=== PATIENT | male | born 1950 | race Caucasian/White ===

== ENCOUNTER 2023-11-04 14:23 | Inpatient (IN) | payer MEDICARE ==
[2023-11-04] MEDS ORDERED: cefTRIAXone\\ROCEPHIN 2 GM in Sodium Chloride 0.9% 100 ML IVPB SCH (17:00)
[2023-11-04] MEDS ORDERED: Lactated Ringer's 1,000 ML IV SCH (17:15)
[2023-11-04] MEDS ORDERED: Furosemide 20 MG TAB PO SCH (17:30)
[2023-11-04 17:54] LABS: Hematocrit 26.3 % (42.0-52.0); Hemoglobin 8.5 g/dL (14.0-18.0); Manual Diff?? YES; Mean Corpuscular HGB CONC 32.3 g/dL (32.0-36.0); Mean Corpuscular Hemoglobin 28.8 pg (27.0-31.0); Mean Corpuscular Volume 89.2 fl (78.0-98.0); Mean Platelet Volume 9.7 fL (7.4-10.4); Platelet Count 117 10x3/uL (130-400); RBC Distribution Width 20.1 % (11.5-14.5); Red Blood Cell (RBC) Count 2.95 mill/uL (4.70-6.10); White Blood Cell (WBC) Count 7.3 10x3/uL (4.8-10.8)
[2023-11-04 18:07] LABS: Delete Auto Diff?? YES
[2023-11-04 18:14] LABS: ALT (SGPT) 8 U/L (8-55); AST (SGOT) 24 U/L (5-34); Albumin 3.1 g/dL (3.4-4.8); Alkaline Phosphatase 116 U/L (40-110); Anion Gap 16 mmol/L (10-20); BUN (Urea Nitrogen) 62 mg/dL (8.4-25.7); Bilirubin, Total 1.3 mg/dL (0.2-1.2); Calc. Creatinine Clearance 0 mL/min (70-130); Calcium 7.9 mg/dL (7.8-10.44); Carbon Dioxide 21 mmol/L (23-31); Chloride 92 mmol/L (98-107); Estimated GFR 25; Globulin 2.7 g/dL (2.4-3.5); Glucose 101 mg/dL (83-110); Potassium 5.7 mmol/L (3.5-5.1); Protein, Total 5.8 g/dL (5.8-8.1); Sodium 123 mmol/L (136-145)
[2023-11-04 18:23] LABS: Band 13 % (5-11); Lymphocytes 3 % (21-51); Monocytes 5 % (0-10); Neutrophil 79 % (42-75); Platelet Adequacy Comment Appears Decreased; Polychromasia SLIGHT = 2-3 cells (100X) (0-2/hpf)
[2023-11-04 18:45] VITALS: BMI 47.7
[2023-11-04] MEDS: Albumin 25% 25 GM (100 mL) BOT IVPB SCH ×2 (19:24→23:23)
[2023-11-04] MEDS ORDERED: Vancomycin 2 GM in Sodium Chloride 0.9% 250 ML 300 ML IVPB SCH (20:00)
[2023-11-04] MEDS: Famotidine 20 MG TAB PO SCH (20:40)
[2023-11-04] MEDS: Apixaban 2.5 MG TAB PO SCH (20:40)
[2023-11-04] MEDS: Sodium Chloride 0.9% 1,000 ML IV SCH (20:40)
[2023-11-05] MEDS ORDERED: Ondansetron ODT 4 MG TAB PO PRN (00:38)
[2023-11-05] MEDS ORDERED: Lorazepam 2 MG/ML VIAL IM PRN (00:38)
[2023-11-05] MEDS ORDERED: Lorazepam 1 MG TAB PO PRN (00:38)
[2023-11-05] MEDS ORDERED: Lorazepam 1 MG TAB PO SCH (00:45)
[2023-11-05] MEDS ORDERED: Electrolyte Replacement Protocol 1 EACH FS SCH (00:45)
[2023-11-05] MEDS: HYDROcodone/Acetaminophen 10/325 mg Tablet PO PRN ×3 (01:03→20:30)
[2023-11-05 02:36] LABS: Hematocrit 24.2 % (42.0-52.0); Hemoglobin 7.8 g/dL (14.0-18.0); Manual Diff?? YES; Mean Corpuscular HGB CONC 32.2 g/dL (32.0-36.0); Mean Corpuscular Hemoglobin 28.6 pg (27.0-31.0); Mean Corpuscular Volume 88.6 fl (78.0-98.0); Mean Platelet Volume 9.7 fL (7.4-10.4); Platelet Count 113 10x3/uL (130-400); RBC Distribution Width 19.9 % (11.5-14.5); Red Blood Cell (RBC) Count 2.73 mill/uL (4.70-6.10); White Blood Cell (WBC) Count 7.3 10x3/uL (4.8-10.8)
[2023-11-05 02:43] LABS: Delete Auto Diff?? YES
[2023-11-05 02:54] LABS: Band 8 % (5-11); Lymphocytes 3 % (21-51); Monocytes 1 % (0-10); Neutrophil 88 % (42-75)
[2023-11-05 02:55] LABS: Bilirubin, Direct 0.7 mg/dL (0.1-0.3); Magnesium 2.7 mg/dL (1.6-2.6); Phosphorus 5.9 mg/dL (2.3-4.7); Platelet Adequacy Comment Appears Decreased
[2023-11-05 04:02] LABS: ALT (SGPT) 10 U/L (8-55); AST (SGOT) 37 U/L (5-34); Albumin 2.9 g/dL (3.4-4.8); Alkaline Phosphatase 114 U/L (40-110); Anion Gap 17 mmol/L (10-20); BUN (Urea Nitrogen) 65 mg/dL (8.4-25.7); Bilirubin, Total 1.1 mg/dL (0.2-1.2); Calc. Creatinine Clearance 57 mL/min (70-130); Calcium 7.7 mg/dL (7.8-10.44); Carbon Dioxide 18 mmol/L (23-31); Chloride 94 mmol/L (98-107); Estimated GFR 27; Globulin 2.6 g/dL (2.4-3.5); Glucose 102 mg/dL (83-110); Potassium 5.2 mmol/L (3.5-5.1); Protein, Total 5.5 g/dL (5.8-8.1); Sodium 124 mmol/L (136-145)
[2023-11-05] MEDS: Sodium Chloride 0.9% 1,000 ML IV SCH (05:39)
[2023-11-05] MEDS: Albumin 25% 25 GM (100 mL) BOT IVPB SCH ×4 (05:39→23:51)
[2023-11-05 06:21] LABS: Bacteria/HPF None Seen HPF (None Seen); Bilirubin Negative (Negative); Blood, Urine Trace (Negative); CAUTI Indications for Culture Pelvic or flank pain; Clarity Turbid (Clear); Glucose, Urine (Dipstick) Normal (Negative); Ketone, Urine Negative (Negative); Leukocyte Negative Leu/uL (Negative); Nitrite Negative (Negative); Protein, Urine (Dipstick) 30 mg/dL (Neg-Trace); RBC/HPF 0-3 HPF (0-3); Specific Gravity, Urine 1.017 (1.002-1.036); Squamous Epithelial 0-3 HPF (0-3); Urobilinogen Normal mg/dL (Less than 2)
[2023-11-05 06:24] LABS: Calcium Oxalate Crystals 1+ HPF (None Seen)
[2023-11-05 06:26] LABS: Urine Culture Reflex No No
[2023-11-05] MEDS ORDERED: FLU VACC QS2023(65UP)/MF59C/PF 60 MCG/0.5 ML SYRINGE IM ONE (09:00)
[2023-11-05 10:23] LABS: #Eosinphils 0.1 thou/uL (0.0-0.7); #Monocytes 0.6 thou/uL (0.11-0.59); #Neutrophils 6.5 thou/uL (1.40-6.50); %Basophils 0.1 % (0.0-1.0); %Eosinophils 1.2 % (0.0-10.0); %Lymphocytes 4.7 % (21.0-51.0); %Monocytes 7.4 % (0.0-10.0); %Neutrophils 86.2 % (42.0-75.0); Hematocrit 26.5 % (42.0-52.0); Hemoglobin 8.4 g/dL (14.0-18.0); Mean Corpuscular HGB CONC 31.7 g/dL (32.0-36.0); Mean Corpuscular Hemoglobin 28.2 pg (27.0-31.0); Mean Corpuscular Volume 88.9 fl (78.0-98.0); Mean Platelet Volume 10.1 fL (7.4-10.4); Platelet Count 115 10x3/uL (130-400); RBC Distribution Width 19.9 % (11.5-14.5); Red Blood Cell (RBC) Count 2.98 mill/uL (4.70-6.10); White Blood Cell (WBC) Count 7.5 10x3/uL (4.8-10.8)
[2023-11-05] MEDS: Famotidine 20 MG TAB PO SCH ×2 (10:25→20:31)
[2023-11-05] MEDS: Furosemide 40 MG TAB PO SCH ×2 (10:25→14:17)
[2023-11-05] MEDS: Apixaban 2.5 MG TAB PO SCH ×2 (10:25→20:31)
[2023-11-05] MEDS: Multivit, Therapeutic 1 TAB PO SCH (10:26)
[2023-11-05] MEDS: Sevelamer Carbonate 800 MG TAB PO SCH ×2 (12:04→17:55)
[2023-11-05] MEDS ORDERED: Piperacillin/Tazobactam 3.375 GM in Sodium Chloride 0.9% 100 ML IVPB SCH ×4 (13:00→18:00)
[2023-11-05] MEDS: Piperacillin/Tazobactam 3.375 GM in Sodium Chloride 0.9% 100 ML IVPB SCH (20:31)
[2023-11-05] MEDS: Vancomycin HCl 750 MG in Sodium Chloride 0.9% 250 ML 250 ML IVPB SCH (20:32)
[2023-11-06] MEDS ORDERED: Lorazepam 1 MG TAB PO PRN (00:38)
[2023-11-06] MEDS: Piperacillin/Tazobactam 3.375 GM in Sodium Chloride 0.9% 100 ML IVPB SCH ×3 (03:17→20:39)
[2023-11-06] MEDS: HYDROcodone/Acetaminophen 10/325 mg Tablet PO PRN ×3 (03:21→20:44)
[2023-11-06] MEDS: Albumin 25% 25 GM (100 mL) BOT IVPB SCH (05:47)
[2023-11-06 06:18] LABS: Anion Gap 17 mmol/L (10-20); BUN (Urea Nitrogen) 61 mg/dL (8.4-25.7); Calc. Creatinine Clearance 98 mL/min (70-130); Calcium 7.8 mg/dL (7.8-10.44); Carbon Dioxide 20 mmol/L (23-31); Chloride 96 mmol/L (98-107); Estimated GFR 51; Glucose 86 mg/dL (83-110); Iron 12 ug/dL (65-175); Iron Binding Capacity, Total 153 mcg/dL (261-462); Potassium 4.3 mmol/L (3.5-5.1); Sodium 129 mmol/L (136-145)
[2023-11-06] MEDS: Ferrous Sulfate 325 MG TAB PO SCH ×2 (09:20→17:32)
[2023-11-06] MEDS: Sevelamer Carbonate 800 MG TAB PO SCH ×3 (09:20→17:32)
[2023-11-06] MEDS: Famotidine 20 MG TAB PO SCH ×2 (09:20→20:40)
[2023-11-06] MEDS: Multivit, Therapeutic 1 TAB PO SCH (09:20)
[2023-11-06] MEDS: Furosemide 40 MG TAB PO SCH (09:20)
[2023-11-06] MEDS: Vancomycin HCl 750 MG in Sodium Chloride 0.9% 250 ML 250 ML IVPB SCH (20:39)
[2023-11-06 20:47] LABS: Vancomycin, Trough 12.9 ug/mL
[2023-11-06] MEDS ORDERED: Apixaban 5 MG TAB PO SCH (21:00)
[2023-11-07] MEDS ORDERED: Lorazepam 1 MG TAB PO PRN (00:38)
[2023-11-07] MEDS ORDERED: Lorazepam 0.5 MG TAB PO SCH (00:45)
[2023-11-07] MEDS: HYDROcodone/Acetaminophen 10/325 mg Tablet PO PRN ×4 (00:46→21:31)
[2023-11-07 04:45] LABS: #Eosinphils 0.1 thou/uL (0.0-0.7); #Monocytes 0.3 thou/uL (0.11-0.59); #Neutrophils 3.4 thou/uL (1.40-6.50); %Eosinophils 1.9 % (0.0-10.0); %Lymphocytes 11.5 % (21.0-51.0); %Neutrophils 78.4 % (42.0-75.0); Hematocrit 26.2 % (42.0-52.0); Hemoglobin 8.2 g/dL (14.0-18.0); Mean Corpuscular HGB CONC 31.3 g/dL (32.0-36.0); Mean Corpuscular Hemoglobin 28.2 pg (27.0-31.0); Mean Platelet Volume 9.5 fL (7.4-10.4); Platelet Count 126 10x3/uL (130-400); RBC Distribution Width 19.4 % (11.5-14.5); Red Blood Cell (RBC) Count 2.91 mill/uL (4.70-6.10); White Blood Cell (WBC) Count 4.3 10x3/uL (4.8-10.8)
[2023-11-07 05:06] LABS: Anion Gap 11 mmol/L (10-20); BUN (Urea Nitrogen) 45 mg/dL (8.4-25.7); Calc. Creatinine Clearance 146 mL/min (70-130); Calcium 8.2 mg/dL (7.8-10.44); Carbon Dioxide 27 mmol/L (23-31); Chloride 100 mmol/L (98-107); Estimated GFR 83; Glucose 92 mg/dL (83-110); Sodium 134 mmol/L (136-145)
[2023-11-07] MEDS: Piperacillin/Tazobactam 3.375 GM in Sodium Chloride 0.9% 100 ML IVPB SCH ×3 (06:45→21:30)
[2023-11-07] MEDS: Multivit, Therapeutic 1 TAB PO SCH (09:01)
[2023-11-07] MEDS: Ferrous Sulfate 325 MG TAB PO SCH ×2 (09:03→17:41)
[2023-11-07] MEDS: Famotidine 20 MG TAB PO SCH ×2 (09:04→21:31)
[2023-11-07] MEDS: Furosemide 40 MG TAB PO SCH (09:05)
[2023-11-07] MEDS: Sevelamer Carbonate 800 MG TAB PO SCH ×3 (09:05→17:41)
[2023-11-07 09:37] LABS: Phosphorus 3.1 mg/dL (2.3-4.7)
[2023-11-07] MEDS ORDERED: PROPOFOL 20 ML ONE (11:55)
[2023-11-07] MEDS ORDERED: PHENYLEPHRINE-NS 100 MCG/ML 10 ML SYRINGE ONE (11:55)
[2023-11-07] MEDS ORDERED: Ketamine In 0.9 % NaCl 50 MG/5 ML SYRINGE ONE (11:55)
[2023-11-07] MEDS ORDERED: Ondansetron HCl/PF 4 MG/2 ML Vial IVP PRN (12:04)
[2023-11-07] MEDS ORDERED: Midazolam HCl 2 mg/2 ml Vial ONE (12:04)
[2023-11-07] MEDS ORDERED: Promethazine HCl 25 MG/ML VIAL IM PRN (12:04)
[2023-11-07] MEDS ORDERED: fentaNYL 50 mcg/mL 1 mL Vial ONE (12:10)
[2023-11-07] MEDS ORDERED: fentaNYL PF 100 MCG/2 ML SYRINGE ONE ×2 (12:53→13:07)
[2023-11-07] MEDS: Vancomycin HCl 750 MG in Sodium Chloride 0.9% 250 ML 250 ML IVPB SCH (14:29)
[2023-11-08] MEDS ORDERED: Lorazepam 0.5 MG TAB PO PRN (00:38)
[2023-11-08] MEDS: Vancomycin HCl 750 MG in Sodium Chloride 0.9% 250 ML 250 ML IVPB SCH ×2 (00:55→11:43)
[2023-11-08] MEDS: HYDROcodone/Acetaminophen 10/325 mg Tablet PO PRN ×6 (01:28→23:50)
[2023-11-08] MEDS: Piperacillin/Tazobactam 3.375 GM in Sodium Chloride 0.9% 100 ML IVPB SCH ×3 (04:51→20:04)
[2023-11-08 07:22] LABS: #Monocytes 0.3 thou/uL (0.11-0.59); #Neutrophils 3.5 thou/uL (1.40-6.50); %Basophils 0.2 % (0.0-1.0); %Eosinophils 0.9 % (0.0-10.0); %Lymphocytes 9.8 % (21.0-51.0); %Neutrophils 82.2 % (42.0-75.0); Hematocrit 26.6 % (42.0-52.0); Hemoglobin 7.9 g/dL (14.0-18.0); Mean Corpuscular HGB CONC 29.7 g/dL (32.0-36.0); Mean Corpuscular Hemoglobin 27.3 pg (27.0-31.0); Mean Platelet Volume 9.6 fL (7.4-10.4); Platelet Count 127 10x3/uL (130-400); RBC Distribution Width 19.6 % (11.5-14.5); Red Blood Cell (RBC) Count 2.89 mill/uL (4.70-6.10); White Blood Cell (WBC) Count 4.3 10x3/uL (4.8-10.8)
[2023-11-08 07:33] LABS: ALT (SGPT) 9 U/L (8-55); AST (SGOT) 17 U/L (5-34); Albumin 3.3 g/dL (3.4-4.8); Alkaline Phosphatase 176 U/L (40-110); Anion Gap 13 mmol/L (10-20); BUN (Urea Nitrogen) 30 mg/dL (8.4-25.7); Bilirubin, Total 1.1 mg/dL (0.2-1.2); Calc. Creatinine Clearance 190 mL/min (70-130); Calcium 8.1 mg/dL (7.8-10.44); Carbon Dioxide 27 mmol/L (23-31); Chloride 102 mmol/L (98-107); Estimated GFR 96; Globulin 2.3 g/dL (2.4-3.5); Glucose 96 mg/dL (83-110); Protein, Total 5.6 g/dL (5.8-8.1); Sodium 138 mmol/L (136-145)
[2023-11-08] MEDS: Sevelamer Carbonate 800 MG TAB PO SCH ×3 (09:02→17:00)
[2023-11-08] MEDS: Multivit, Therapeutic 1 TAB PO SCH (09:02)
[2023-11-08] MEDS: Ferrous Sulfate 325 MG TAB PO SCH ×2 (09:02→17:00)
[2023-11-08] MEDS: Famotidine 20 MG TAB PO SCH ×2 (09:02→20:05)
[2023-11-08] MEDS: Furosemide 40 MG TAB PO SCH (09:03)
[2023-11-08] MEDS: Apixaban 5 MG TAB PO SCH ×2 (09:03→20:05)
[2023-11-08] MEDS ORDERED: Morphine 2 MG/ML VIAL SLOW IVP PRN (11:12)
[2023-11-08] MEDS ORDERED: Vancomycin HCl 750 MG in Sodium Chloride 0.9% 250 ML 250 ML IVPB SCH ×2 (20:00→23:59)
[2023-11-08 23:35] LABS: Vancomycin, Trough 10.2 ug/mL
[2023-11-08] MEDS ORDERED: Vancomycin (BATCH) 1.25 GM in Premix 1 BAG IVPB SCH (23:59)
[2023-11-09] MEDS: HYDROcodone/Acetaminophen 10/325 mg Tablet PO PRN ×5 (03:46→21:49)
[2023-11-09] MEDS: Piperacillin/Tazobactam 3.375 GM in Sodium Chloride 0.9% 100 ML IVPB SCH (03:47)
[2023-11-09 08:54] LABS: #Monocytes 0.2 thou/uL (0.11-0.59); %Basophils 0.2 % (0.0-1.0); %Eosinophils 0.7 % (0.0-10.0); %Lymphocytes 8.9 % (21.0-51.0); %Monocytes 3.8 % (0.0-10.0); %Neutrophils 85.5 % (42.0-75.0); Hematocrit 28.2 % (42.0-52.0); Hemoglobin 8.5 g/dL (14.0-18.0); Mean Corpuscular HGB CONC 30.1 g/dL (32.0-36.0); Mean Corpuscular Hemoglobin 27.4 pg (27.0-31.0); Mean Platelet Volume 9.2 fL (7.4-10.4); RBC Distribution Width 19.3 % (11.5-14.5); White Blood Cell (WBC) Count 5.8 10x3/uL (4.8-10.8)
[2023-11-09] MEDS: Ferrous Sulfate 325 MG TAB PO SCH ×2 (09:10→18:46)
[2023-11-09] MEDS: Famotidine 20 MG TAB PO SCH ×2 (09:11→21:49)
[2023-11-09] MEDS: Sevelamer Carbonate 800 MG TAB PO SCH ×3 (09:11→18:46)
[2023-11-09] MEDS: Furosemide 40 MG TAB PO SCH (09:11)
[2023-11-09] MEDS: Apixaban 5 MG TAB PO SCH ×2 (09:11→20:14)
[2023-11-09] MEDS: Multivit, Therapeutic 1 TAB PO SCH (09:11)
[2023-11-09 09:17] LABS: ALT (SGPT) 9 U/L (8-55); AST (SGOT) 22 U/L (5-34); Albumin 3.4 g/dL (3.4-4.8); Alkaline Phosphatase 235 U/L (40-110); Anion Gap 12 mmol/L (10-20); BUN (Urea Nitrogen) 18 mg/dL (8.4-25.7); Bilirubin, Total 1.3 mg/dL (0.2-1.2); Calc. Creatinine Clearance 190 mL/min (70-130); Calcium 8.2 mg/dL (7.8-10.44); Carbon Dioxide 28 mmol/L (23-31); Chloride 99 mmol/L (98-107); Estimated GFR 96; Globulin 2.4 g/dL (2.4-3.5); Glucose 116 mg/dL (83-110); Potassium 3.8 mmol/L (3.5-5.1); Protein, Total 5.8 g/dL (5.8-8.1); Sodium 135 mmol/L (136-145)
[2023-11-09 09:52] LABS: Platelet Count 128 10x3/uL (130-400)
[2023-11-09] MEDS ORDERED: CEFAZOLIN 1 GM in Sodium Chloride 0.9% 100 ML IVPB SCH (14:00)
[2023-11-09] MEDS: AMOXicillin 250 MG CAP PO SCH ×2 (14:51→20:14)
[2023-11-09] MEDS: Cefdinir 300 MG CAP PO SCH (20:14)
[2023-11-10] MEDS: HYDROcodone/Acetaminophen 10/325 mg Tablet PO PRN ×6 (01:53→22:06)
[2023-11-10 06:59] LABS: #Monocytes 0.2 thou/uL (0.11-0.59); #Neutrophils 4.5 thou/uL (1.40-6.50); %Basophils 0.2 % (0.0-1.0); %Eosinophils 0.8 % (0.0-10.0); %Lymphocytes 9.6 % (21.0-51.0); %Monocytes 4.3 % (0.0-10.0); %Neutrophils 84.3 % (42.0-75.0); Hematocrit 26.7 % (42.0-52.0); Hemoglobin 8.2 g/dL (14.0-18.0); Mean Corpuscular HGB CONC 30.7 g/dL (32.0-36.0); Mean Corpuscular Hemoglobin 27.2 pg (27.0-31.0); Mean Corpuscular Volume 88.4 fl (78.0-98.0); Mean Platelet Volume 8.7 fL (7.4-10.4); Platelet Count 128 10x3/uL (130-400); Red Blood Cell (RBC) Count 3.02 mill/uL (4.70-6.10); White Blood Cell (WBC) Count 5.3 10x3/uL (4.8-10.8)
[2023-11-10 07:27] LABS: ALT (SGPT) 10 U/L (8-55); AST (SGOT) 19 U/L (5-34); Albumin 3.1 g/dL (3.4-4.8); Alkaline Phosphatase 204 U/L (40-110); Anion Gap 10 mmol/L (10-20); BUN (Urea Nitrogen) 15 mg/dL (8.4-25.7); Calc. Creatinine Clearance 227 mL/min (70-130); Calcium 7.9 mg/dL (7.8-10.44); Carbon Dioxide 28 mmol/L (23-31); Chloride 99 mmol/L (98-107); Estimated GFR 101; Globulin 2.2 g/dL (2.4-3.5); Glucose 108 mg/dL (83-110); Potassium 3.8 mmol/L (3.5-5.1); Protein, Total 5.3 g/dL (5.8-8.1); Sodium 133 mmol/L (136-145)
[2023-11-10] MEDS: Famotidine 20 MG TAB PO SCH ×2 (08:17→20:43)
[2023-11-10] MEDS: AMOXicillin 250 MG CAP PO SCH ×3 (08:17→20:44)
[2023-11-10] MEDS: Cefdinir 300 MG CAP PO SCH ×2 (08:17→20:44)
[2023-11-10] MEDS: Multivit, Therapeutic 1 TAB PO SCH (08:18)
[2023-11-10] MEDS: Apixaban 5 MG TAB PO SCH ×2 (08:18→20:44)
[2023-11-10] MEDS: Sevelamer Carbonate 800 MG TAB PO SCH ×3 (08:18→17:22)
[2023-11-10] MEDS: Furosemide 40 MG TAB PO SCH (08:18)
[2023-11-10] MEDS: Ferrous Sulfate 325 MG TAB PO SCH ×2 (08:18→17:22)
[2023-11-11] MEDS: HYDROcodone/Acetaminophen 10/325 mg Tablet PO PRN ×6 (04:21→22:02)
[2023-11-11 06:49] LABS: #Monocytes 0.3 thou/uL (0.11-0.59); #Neutrophils 4.9 thou/uL (1.40-6.50); %Basophils 0.3 % (0.0-1.0); %Eosinophils 0.7 % (0.0-10.0); %Lymphocytes 10.6 % (21.0-51.0); %Monocytes 5.7 % (0.0-10.0); %Neutrophils 82.2 % (42.0-75.0); Hematocrit 26.1 % (42.0-52.0); Mean Corpuscular HGB CONC 30.7 g/dL (32.0-36.0); Mean Corpuscular Hemoglobin 26.9 pg (27.0-31.0); Mean Corpuscular Volume 87.9 fl (78.0-98.0); Mean Platelet Volume 9.4 fL (7.4-10.4); Platelet Count 172 10x3/uL (130-400); RBC Distribution Width 19.1 % (11.5-14.5); Red Blood Cell (RBC) Count 2.97 mill/uL (4.70-6.10)
[2023-11-11 07:08] LABS: ALT (SGPT) 10 U/L (8-55); AST (SGOT) 19 U/L (5-34); Albumin 2.9 g/dL (3.4-4.8); Alkaline Phosphatase 192 U/L (40-110); Anion Gap 12 mmol/L (10-20); BUN (Urea Nitrogen) 19 mg/dL (8.4-25.7); Bilirubin, Total 0.8 mg/dL (0.2-1.2); Calc. Creatinine Clearance 238 mL/min (70-130); Calcium 7.9 mg/dL (7.8-10.44); Carbon Dioxide 28 mmol/L (23-31); Chloride 99 mmol/L (98-107); Estimated GFR 102; Globulin 2.1 g/dL (2.4-3.5); Glucose 103 mg/dL (83-110); Potassium 3.9 mmol/L (3.5-5.1); Sodium 135 mmol/L (136-145)
[2023-11-11] MEDS: Furosemide 40 MG TAB PO SCH (09:53)
[2023-11-11] MEDS: Famotidine 20 MG TAB PO SCH ×2 (09:53→20:13)
[2023-11-11] MEDS: Ferrous Sulfate 325 MG TAB PO SCH ×2 (09:53→18:18)
[2023-11-11] MEDS: Apixaban 5 MG TAB PO SCH ×2 (09:53→20:14)
[2023-11-11] MEDS: AMOXicillin 250 MG CAP PO SCH ×3 (09:53→20:13)
[2023-11-11] MEDS: Multivit, Therapeutic 1 TAB PO SCH (09:53)
[2023-11-11] MEDS: Sevelamer Carbonate 800 MG TAB PO SCH (09:54)
[2023-11-11] MEDS: Cefdinir 300 MG CAP PO SCH ×2 (09:54→20:14)
[2023-11-12] MEDS: HYDROcodone/Acetaminophen 10/325 mg Tablet PO PRN ×5 (02:05→20:28)
[2023-11-12 04:57] LABS: #Eosinphils 0.1 thou/uL (0.0-0.7); #Monocytes 0.4 thou/uL (0.11-0.59); #Neutrophils 4.6 thou/uL (1.40-6.50); %Basophils 0.2 % (0.0-1.0); %Lymphocytes 14.6 % (21.0-51.0); %Monocytes 6.5 % (0.0-10.0); %Neutrophils 77.2 % (42.0-75.0); Hematocrit 25.8 % (42.0-52.0); Mean Corpuscular Hemoglobin 27.4 pg (27.0-31.0); Mean Corpuscular Volume 88.4 fl (78.0-98.0); Mean Platelet Volume 9.3 fL (7.4-10.4); Platelet Count 188 10x3/uL (130-400); RBC Distribution Width 18.7 % (11.5-14.5); Red Blood Cell (RBC) Count 2.92 mill/uL (4.70-6.10); White Blood Cell (WBC) Count 5.9 10x3/uL (4.8-10.8)
[2023-11-12 05:23] LABS: ALT (SGPT) 8 U/L (8-55); AST (SGOT) 17 U/L (5-34); Alkaline Phosphatase 187 U/L (40-110); Anion Gap 10 mmol/L (10-20); BUN (Urea Nitrogen) 14 mg/dL (8.4-25.7); Bilirubin, Total 0.9 mg/dL (0.2-1.2); Calc. Creatinine Clearance 227 mL/min (70-130); Calcium 7.9 mg/dL (7.8-10.44); Carbon Dioxide 29 mmol/L (23-31); Chloride 97 mmol/L (98-107); Estimated GFR 101; Glucose 96 mg/dL (83-110); Potassium 4.1 mmol/L (3.5-5.1); Sodium 132 mmol/L (136-145)
[2023-11-12] MEDS: Furosemide 40 MG TAB PO SCH (08:36)
[2023-11-12] MEDS: Cefdinir 300 MG CAP PO SCH ×2 (08:36→20:28)
[2023-11-12] MEDS: Apixaban 5 MG TAB PO SCH ×2 (08:36→20:28)
[2023-11-12] MEDS: Famotidine 20 MG TAB PO SCH ×2 (08:36→20:28)
[2023-11-12] MEDS: AMOXicillin 250 MG CAP PO SCH ×3 (08:36→20:28)
[2023-11-12] MEDS: Multivit, Therapeutic 1 TAB PO SCH (08:37)
[2023-11-12] MEDS: Ferrous Sulfate 325 MG TAB PO SCH ×2 (08:37→16:09)
[2023-11-13] MEDS: HYDROcodone/Acetaminophen 10/325 mg Tablet PO PRN ×3 (04:29→19:05)
[2023-11-13 05:54] LABS: ALT (SGPT) 8 U/L (8-55); AST (SGOT) 17 U/L (5-34); Albumin 2.9 g/dL (3.4-4.8); Alkaline Phosphatase 216 U/L (40-110); Anion Gap 13 mmol/L (10-20); BUN (Urea Nitrogen) 15 mg/dL (8.4-25.7); Calc. Creatinine Clearance 223 mL/min (70-130); Calcium 7.9 mg/dL (7.8-10.44); Carbon Dioxide 28 mmol/L (23-31); Chloride 96 mmol/L (98-107); Estimated GFR 100; Globulin 2.2 g/dL (2.4-3.5); Glucose 95 mg/dL (83-110); Potassium 4.4 mmol/L (3.5-5.1); Protein, Total 5.1 g/dL (5.8-8.1); Sodium 133 mmol/L (136-145)
[2023-11-13] MEDS: Ferrous Sulfate 325 MG TAB PO SCH ×2 (09:07→17:52)
[2023-11-13] MEDS: Cefdinir 300 MG CAP PO SCH ×2 (09:07→20:15)
[2023-11-13] MEDS: Furosemide 40 MG TAB PO SCH (09:07)
[2023-11-13] MEDS: AMOXicillin 250 MG CAP PO SCH ×3 (09:07→20:15)
[2023-11-13] MEDS: Famotidine 20 MG TAB PO SCH ×2 (09:08→20:15)
[2023-11-13] MEDS: Multivit, Therapeutic 1 TAB PO SCH (09:08)
[2023-11-13] MEDS: Apixaban 5 MG TAB PO SCH ×2 (09:08→20:15)
[2023-11-13] MEDS ORDERED: Ketorolac Tromethamine 30 MG (1 mL) VIAL IVP SCH (12:00)
[2023-11-14] MEDS: HYDROcodone/Acetaminophen 10/325 mg Tablet PO PRN ×5 (01:19→21:24)
[2023-11-14] MEDS ORDERED: Ketorolac Tromethamine 30 MG (1 mL) VIAL IVP PRN (06:50)
[2023-11-14] MEDS: Famotidine 20 MG TAB PO SCH (09:26)
[2023-11-14] MEDS: AMOXicillin 250 MG CAP PO SCH ×3 (09:26→21:24)
[2023-11-14] MEDS: Apixaban 5 MG TAB PO SCH ×2 (09:27→21:24)
[2023-11-14] MEDS: Ferrous Sulfate 325 MG TAB PO SCH ×2 (09:27→17:42)
[2023-11-14] MEDS: Multivit, Therapeutic 1 TAB PO SCH (09:27)
[2023-11-14] MEDS: Cefdinir 300 MG CAP PO SCH ×2 (09:27→21:24)
[2023-11-14] MEDS: Furosemide 40 MG TAB PO SCH (09:27)
[2023-11-15] MEDS: HYDROcodone/Acetaminophen 10/325 mg Tablet PO PRN ×3 (06:25→20:23)
[2023-11-15] MEDS: Cefdinir 300 MG CAP PO SCH ×2 (08:44→20:24)
[2023-11-15] MEDS: Furosemide 40 MG TAB PO SCH (08:44)
[2023-11-15] MEDS: Ferrous Sulfate 325 MG TAB PO SCH ×2 (08:44→18:39)
[2023-11-15] MEDS: AMOXicillin 250 MG CAP PO SCH ×3 (08:44→20:24)
[2023-11-15] MEDS: Apixaban 5 MG TAB PO SCH ×2 (08:44→20:24)
[2023-11-15] MEDS: Multivit, Therapeutic 1 TAB PO SCH (08:44)
[2023-11-16] MEDS: HYDROcodone/Acetaminophen 10/325 mg Tablet PO PRN ×3 (04:26→19:37)
[2023-11-16] MEDS: Cefdinir 300 MG CAP PO SCH (08:30)
[2023-11-16] MEDS: AMOXicillin 250 MG CAP PO SCH (08:30)
[2023-11-16] MEDS: Furosemide 40 MG TAB PO SCH (08:30)
[2023-11-16] MEDS: Apixaban 5 MG TAB PO SCH ×2 (08:31→19:37)
[2023-11-16] MEDS: Ferrous Sulfate 325 MG TAB PO SCH ×2 (08:31→16:23)
[2023-11-16] MEDS: Multivit, Therapeutic 1 TAB PO SCH (08:31)
[2023-11-16] MEDS ORDERED: Famotidine 20 MG TAB PO SCH (15:45)
[2023-11-16] MEDS: Melatonin 3 MG TAB PO PRN (19:37)
[2023-11-17] MEDS: HYDROcodone/Acetaminophen 10/325 mg Tablet PO PRN ×4 (05:56→22:15)
[2023-11-17] MEDS: Ferrous Sulfate 325 MG TAB PO SCH ×2 (08:24→17:23)
[2023-11-17] MEDS: Apixaban 5 MG TAB PO SCH ×2 (08:24→20:06)
[2023-11-17] MEDS: Furosemide 40 MG TAB PO SCH (08:24)
[2023-11-17] MEDS: Multivit, Therapeutic 1 TAB PO SCH (08:24)
[2023-11-17] MEDS ORDERED: Famotidine 20 MG TAB PO SCH (09:00)
[2023-11-17] MEDS: Melatonin 3 MG TAB PO PRN (22:15)
[2023-11-18] MEDS: HYDROcodone/Acetaminophen 10/325 mg Tablet PO PRN ×4 (04:00→21:07)
[2023-11-18] MEDS: Multivit, Therapeutic 1 TAB PO SCH (09:31)
[2023-11-18] MEDS: Ferrous Sulfate 325 MG TAB PO SCH ×2 (09:31→17:13)
[2023-11-18] MEDS: Apixaban 5 MG TAB PO SCH ×2 (09:31→21:01)
[2023-11-18] MEDS: Furosemide 40 MG TAB PO SCH (09:31)
[2023-11-18] MEDS ORDERED: Ketorolac Tromethamine 30 MG (1 mL) VIAL IVP PRN (09:58)
[2023-11-18] MEDS: Nystatin Cream 30 GM TUBE TOP SCH ×2 (19:35→21:01)
[2023-11-18] MEDS: Melatonin 3 MG TAB PO PRN (21:01)
[2023-11-18] MEDS: Nystatin Powder 15 GM BOT TOP SCH (21:02)
[2023-11-19] MEDS: HYDROcodone/Acetaminophen 10/325 mg Tablet PO PRN ×4 (01:06→21:42)
[2023-11-19] MEDS: Apixaban 5 MG TAB PO SCH ×2 (10:44→21:42)
[2023-11-19] MEDS: Multivit, Therapeutic 1 TAB PO SCH (10:44)
[2023-11-19] MEDS: Ferrous Sulfate 325 MG TAB PO SCH ×2 (10:44→18:35)
[2023-11-19] MEDS: Furosemide 40 MG TAB PO SCH (10:44)
[2023-11-19] MEDS: Nystatin Cream 30 GM TUBE TOP SCH ×2 (14:08→21:47)
[2023-11-19] MEDS: Nystatin Powder 15 GM BOT TOP SCH ×2 (19:38→21:47)
[2023-11-19] MEDS: Melatonin 3 MG TAB PO PRN (21:42)
[2023-11-20] MEDS: HYDROcodone/Acetaminophen 10/325 mg Tablet PO PRN ×4 (01:22→21:05)
[2023-11-20] MEDS: Apixaban 5 MG TAB PO SCH ×2 (09:07→21:04)
[2023-11-20] MEDS: Nystatin Powder 15 GM BOT TOP SCH ×2 (09:07→21:06)
[2023-11-20] MEDS: Multivit, Therapeutic 1 TAB PO SCH (09:07)
[2023-11-20] MEDS: Ferrous Sulfate 325 MG TAB PO SCH ×2 (09:07→16:24)
[2023-11-20] MEDS: Furosemide 40 MG TAB PO SCH (09:08)
[2023-11-20] MEDS: Nystatin Cream 30 GM TUBE TOP SCH ×2 (09:09→21:06)
[2023-11-20] MEDS ORDERED: Ketorolac Tromethamine 30 MG (1 mL) VIAL IVP SCH (11:45)
[2023-11-20] MEDS ORDERED: Ketorolac Tromethamine 10 MG TAB PO SCH (12:00)
[2023-11-20] MEDS: Melatonin 3 MG TAB PO PRN (21:04)
[2023-11-21] MEDS: HYDROcodone/Acetaminophen 10/325 mg Tablet PO PRN ×2 (00:58→17:55)
[2023-11-21] MEDS: Ferrous Sulfate 325 MG TAB PO SCH ×2 (09:13→17:54)
[2023-11-21] MEDS: Apixaban 5 MG TAB PO SCH ×2 (09:14→20:52)
[2023-11-21] MEDS: Multivit, Therapeutic 1 TAB PO SCH (09:14)
[2023-11-21] MEDS: Furosemide 40 MG TAB PO SCH (09:14)
[2023-11-21] MEDS: Nystatin Cream 30 GM TUBE TOP SCH ×2 (09:16→20:58)
[2023-11-21] MEDS: Nystatin Powder 15 GM BOT TOP SCH ×2 (10:24→20:58)
[2023-11-21] MEDS ORDERED: HYDROcodone/Acetaminophen 10/325 mg Tablet PO PRN (10:45)
[2023-11-21] MEDS: Melatonin 3 MG TAB PO PRN (21:43)
[2023-11-22] MEDS: HYDROcodone/Acetaminophen 10/325 mg Tablet PO PRN ×3 (02:13→16:27)
[2023-11-22] MEDS ORDERED: Melatonin 3 MG TAB PO PRN (06:41)
[2023-11-22] MEDS ORDERED: Ibuprofen 200 MG TAB PO PRN (06:41)
[2023-11-22 07:38] LABS: #Monocytes 0.2 thou/uL (0.11-0.59); #Neutrophils 1.8 thou/uL (1.40-6.50); %Basophils 0.4 % (0.0-1.0); %Eosinophils 0.8 % (0.0-10.0); %Lymphocytes 20.3 % (21.0-51.0); %Monocytes 8.6 % (0.0-10.0); %Neutrophils 69.1 % (42.0-75.0); Hematocrit 25.9 % (42.0-52.0); Mean Corpuscular HGB CONC 30.9 g/dL (32.0-36.0); Mean Corpuscular Volume 84.1 fl (78.0-98.0); Mean Platelet Volume 9.1 fL (7.4-10.4); Platelet Count 202 10x3/uL (130-400); RBC Distribution Width 17.4 % (11.5-14.5); Red Blood Cell (RBC) Count 3.08 mill/uL (4.70-6.10); White Blood Cell (WBC) Count 2.7 10x3/uL (4.8-10.8)
[2023-11-22 07:52] LABS: Anion Gap 10 mmol/L (10-20); BUN (Urea Nitrogen) 12 mg/dL (8.4-25.7); Calc. Creatinine Clearance 230 mL/min (70-130); Calcium 8.1 mg/dL (7.8-10.44); Carbon Dioxide 31 mmol/L (23-31); Chloride 96 mmol/L (98-107); Estimated GFR 101; Glucose 117 mg/dL (83-110); Potassium 3.5 mmol/L (3.5-5.1); Sodium 133 mmol/L (136-145)
[2023-11-22] MEDS ORDERED: Potassium Chloride 20 MEQ TAB PO SCH (08:30)
[2023-11-22] MEDS: Apixaban 5 MG TAB PO SCH ×2 (08:56→21:08)
[2023-11-22] MEDS: Furosemide 40 MG TAB PO SCH (08:56)
[2023-11-22] MEDS: Multivit, Therapeutic 1 TAB PO SCH (08:56)
[2023-11-22] MEDS: Ferrous Sulfate 325 MG TAB PO SCH ×2 (08:56→16:27)
[2023-11-22] MEDS: Nystatin Cream 30 GM TUBE TOP SCH ×2 (09:02→21:08)
[2023-11-22] MEDS: Nystatin Powder 15 GM BOT TOP SCH ×2 (09:03→21:08)
[2023-11-22] MEDS ORDERED: diphenhydrAMINE 50 MG CAP PO SCH (21:00)
[2023-11-23] MEDS: HYDROcodone/Acetaminophen 10/325 mg Tablet PO PRN (05:37)
[2023-11-23 08:27] VITALS: BP 113/70; TEMP 98.5
[2023-11-23] MEDS: Ferrous Sulfate 325 MG TAB PO SCH (08:50)
[2023-11-23] MEDS: Multivit, Therapeutic 1 TAB PO SCH (08:50)
[2023-11-23] MEDS: Nystatin Cream 30 GM TUBE TOP SCH (08:51)
[2023-11-23] MEDS: Nystatin Powder 15 GM BOT TOP SCH (08:51)
[2023-11-23] MEDS: Apixaban 5 MG TAB PO SCH (08:51)
[2023-11-23] MEDS: Furosemide 40 MG TAB PO SCH (08:51)
[2023-11-23 09:13] LABS: #Monocytes 0.3 thou/uL (0.11-0.59); #Neutrophils 2.5 thou/uL (1.40-6.50); %Basophils 0.3 % (0.0-1.0); %Eosinophils 0.6 % (0.0-10.0); %Lymphocytes 17.9 % (21.0-51.0); %Monocytes 8.2 % (0.0-10.0); %Neutrophils 72.7 % (42.0-75.0); Hematocrit 29.2 % (42.0-52.0); Hemoglobin 8.8 g/dL (14.0-18.0); Mean Corpuscular HGB CONC 30.1 g/dL (32.0-36.0); Mean Corpuscular Hemoglobin 25.1 pg (27.0-31.0); Mean Corpuscular Volume 83.4 fl (78.0-98.0); Mean Platelet Volume 9.2 fL (7.4-10.4); Platelet Count 200 10x3/uL (130-400); RBC Distribution Width 17.5 % (11.5-14.5); White Blood Cell (WBC) Count 3.4 10x3/uL (4.8-10.8)
== END 2023-11-23 11:45 | DRG 871 ==
LOC: 2NO 14:23 → SJJU 11-07 18:46
PROVIDERS: ADMIT Family Medicine; ATTEND Student in an Organized Health Care Education/Training Program
PROC: 3E03329 Introduction of Other Anti-infective into Peripheral Vein, Percutaneous Approach (ICD-10-PCS; 2023-11-04)
PROC: 30233J1 Transfusion of Nonautologous Serum Albumin into Peripheral Vein, Percutaneous Approach (ICD-10-PCS; 2023-11-04)
PROC: 0HDLXZZ Extraction of Left Lower Leg Skin, External Approach (ICD-10-PCS; principal; 2023-11-07)
PROC: 0HDKXZZ Extraction of Right Lower Leg Skin, External Approach (ICD-10-PCS; 2023-11-07)
DX: A41.9 Sepsis, unspecified organism (principal); I50.33 Acute on chronic diastolic (congestive) heart failure; J96.01 Acute respiratory failure with hypoxia; S42.202A Unspecified fracture of upper end of left humerus, initial encounter for closed fracture; N17.9 Acute kidney failure, unspecified; E87.1 Hypo-osmolality and hyponatremia; L03.116 Cellulitis of left lower limb; L03.115 Cellulitis of right lower limb; I87.2 Venous insufficiency (chronic) (peripheral); R65.20 Severe sepsis without septic shock; E87.5 Hyperkalemia; D64.9 Anemia, unspecified; F10.10 Alcohol abuse, uncomplicated; Z90.49 Acquired absence of other specified parts of digestive tract; Z98.49 Cataract extraction status, unspecified eye; Z82.49 Family history of ischemic heart disease and other diseases of the circulatory system; K74.60 Unspecified cirrhosis of liver; L30.4 Erythema intertrigo; I89.0 Lymphedema, not elsewhere classified; B35.1 Tinea unguium; S52.121A Displaced fracture of head of right radius, initial encounter for closed fracture; W18.30XA Fall on same level, unspecified, initial encounter; Z79.899 Other long term (current) drug therapy; Z79.01 Long term (current) use of anticoagulants
CPT/HCPCS: 29105; 36415; 36416; 36600; 70450; 71045; 71250; 72125; 72170; 74177; 76705; 76770; 80048; 80053; 80202; 80307; 81001; 82248; 82550; 82565; 82570; 82728; 82805; 83540; 83550; 83605; 83735; 83880; 83930; 83935; 84100; 84145; 84300; 84443; 84484; 85025; 85610; 85730; 86140; 87040; 87070; 87205; 90471; 90715; 93005; 93306; 93970; 96365; 96374; 96375; 97139; J0692; J0696; J1815; J1885; J1940; J2250; J2270; J2272; J2543; J2704; J3010; J3370; J3411; J3490; J7050; J7611; J7999; P9047